=== PATIENT | female | born 1980 | race Caucasian/White ===

== ENCOUNTER 2016-08-31 12:42 | Emergency (ER) | payer SELFPAY ==
[~2016-08-31] VITALS: Ht 154.9 cm; Wt 65.0 kg
[2016-08-31 12:47] VITALS: Ht 154.9 cm; Wt 65.0 kg
[2016-08-31] MEDS ORDERED: HYDROCODONE/APAP (5/325) TAB PO ONE (13:30)
[2016-08-31] MEDS ORDERED: IBUP-1542 PO (14:02)
[2016-08-31] MEDS ORDERED: HYDR-906 PO (14:02)
[2016-08-31] MEDS ORDERED: CYCL-319 PO (14:03)
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
== END 2016-08-31 14:25 | disposition home or self-care (01) ==
LOC: FTE 12:42
DX: M54.2 Cervicalgia (principal)
CPT/HCPCS: 99283

== ENCOUNTER 2016-11-20 20:35 | Emergency (ER) | END 2016-11-21 01:05 | disposition home or self-care (01) | DX: R11.2 Nausea with vomiting, unspecified (principal); R42 Dizziness and giddiness; F17.210 Nicotine dependence, cigarettes, uncomplicated | CPT/HCPCS: 81003; 93005; 96374; J2765; J7030; Z7502; Z7610 ==

== ENCOUNTER 2017-02-17 14:08 | Emergency (ER) | payer MEDICAID, OTHER ==
[~2017-02-17] VITALS: Ht 160 cm; Wt 78.0 kg
[~2017-02-17 14:08] MED LIST: HYDR-906 PO; IBUP-1542 PO; MECL12.574 PO; ONDA4TAB8 PO
[2017-02-17 14:11] VITALS: Ht 160 cm; Wt 78.0 kg
[2017-02-17] MEDS ORDERED: SOD CHLORIDE 0.9% 1,000 ML IV STA (15:40)
[2017-02-17] MEDS ORDERED: LORAZEPAM 2 MG INJ IV ONE (16:00)
--- NOTE | 2017-02-17 16:14 | RADRPT ---
PROCEDURE: XR Chest. CLINICAL INDICATION: chest pain TECHNIQUE: Single frontal view of the chest was obtained COMPARISON: None FINDINGS: The heart and mediastinum are within normal limits. The lungs are clear. There is no pleural effusion or pneumothorax. RPTAT: AA IMPRESSION: No acute disease. .Jitendra Robert MD, Date Time Electronically viewed and signed by .Jitendra Robert MD, on 02/17/2017 16:14 .S/
[2017-02-17 16:30] LABS: BASOPHILS % 0.5 % (0.0-2.0); EOSINOPHILS % 0.5 % (0.0-7.0); HEMATOCRIT 43.5 % (37.0-47.0); HEMOGLOBIN 14.1 g/dl (12.0-16.0); LYMPHOCYTES # 1.1 10^3/ul (0.8-2.9); LYMPHOCYTES % 13.2 % (15.0-51.0); MEAN CORPUSCULAR HEMOGLOBIN 30.9 pg (29.0-33.0); MEAN CORPUSCULAR HGB CONC 32.4 g/dl (32.0-37.0); MEAN CORPUSCULAR VOLUME 95.2 fl (82.0-101.0); MEAN PLATELET VOLUME 9.4 fl (7.4-10.4); MONOCYTE # 0.5 10^3/ul (0.3-0.9); MONOCYTES % 5.7 % (0.0-11.0); NEUTROPHIL # 6.9 10^3/ul (1.6-7.5); NEUTROPHILS % 79.9 % (39.0-77.0); PLATELET COUNT 323 10^3/UL (140-415); RED BLOOD COUNT 4.57 10^6/ul (4.20-5.40); RED CELL DISTRIBUTION WIDTH 13.2 % (11.5-14.5); WHITE BLOOD COUNT 8.6 10^3/ul (4.8-10.8)
[2017-02-17 16:47] LABS: ALBUMIN 4.5 g/dl (3.3-4.9); ALBUMIN/GLOBULIN RATIO 1.28; BILIRUBIN,INDIRECT 0.9 mg/dl (0-1.1); BILIRUBIN,TOTAL 0.9 mg/dl (0.2-1.3); CALCIUM 9.2 mg/dl (8.4-10.2); CREATININE 0.73 mg/dl (0.44-1.00)
[2017-02-17 17:24] LABS: URINE BLOOD (Dip) POC Trace-intact (NEGATIVE)
[2017-02-17] MEDS ORDERED: ALBU8.5H3 INH (17:27)
--- NOTE | 2017-02-17 17:44 | ERD ---
ER Documentation Chief Complaint Date/Time DATE: 02/17/17 TIME: 17:40 Chief Complaint anxiety with islas,dizziness , blurry vision HPI 36-year-old female patient with past medical history of anemia presents to the ED complaining of chest pain, headache, dizziness that started yesterday. Patient reports that she last used cocaine 3 weeks ago. Denies any alcohol or other drug use. Denies any smoking. Denies any abdominal pain, nausea, vomiting, diarrhea, chest pain, cough, shortness of breath. Denies any recent traveling. Denies any leg swelling. Denies any loss of vision, blurred vision, diplopia. ROS All systems reviewed and are negative except as per history of present illness. Medications Home Meds Active Scripts Albuterol Sulfate* (Proair HFA*) 8.5 Gm Hfa.aer.ad, 2 PUFF INH Q4, #1 INHALER Prov:FERNANDA BARBER PA-C 02/17/17 Meclizine Hcl* (Antivert*) 12.5 Mg Tab, 12.5 MG PO Q6H Y for DIZZINESS, #20 TAB Prov:GONZALO HWANG PA-C 11/21/16 Ondansetron Hcl* (Zofran*) 4 Mg Tablet, 4 MG PO Q6H for NAUSEA AND/OR VOMITING, #30 TAB Prov:GONZALO HWANG PA-C 11/21/16 Hydrocodone/Acetaminophen (Nevis 5-325 Tablet) 1 Each Tablet, 1 TAB PO Q6H Y for PAIN, #7 TAB Prov:ED WATSON PA-C 08/31/16 Ibuprofen* (Motrin*) 600 Mg Tab, 600 MG PO Q6, #30 TAB Prov:ED WATSON PA-C 08/31/16 Reported Medications [None] No Conflict Check 12/13/09 Allergies Allergies: Coded Allergies: No Known Drug Allergy (Verified Allergy, Mild, 02/17/17) PMhx/Soc History of Surgery: Yes (d&c; HAD AN ) Anesthesia Reaction: No Hx Neurological Disorder: No Hx Respiratory Disorders: Yes (bronchitis) Hx Cardiac Disorders: No Hx Psychiatric Problems: No Hx Miscellaneous Medical Probl: Yes (PTSD) Hx Alcohol Use: Yes Hx Substance Use: Yes (cocaine, meth) Hx Tobacco Use: Yes Smoking Status: Current every day smoker Physical Exam Vitals Vital Signs Date Time Temp Pulse Resp B/P Pulse Ox O2 Delivery O2 Flow Rate FiO2 02/17/17 18:50 97.8 88 18 130/81 100 Room Air 02/17/17 14:11 98.1 72 18 131/72 99 Physical Exam Const: [id number]-iqb-[id number], well-nourished. In no acute distress. Head: Atraumatic, normocephalic Eyes: Normal Conjunctiva without injection. No purulent discharge. PERRLA. EOMI ENT: Normal external ear. Ear canal without erythema. Tympanic membrane pearly olmedo without effusion or bulging. Nasal canal clear with normal turbinates. Moist oropharynx without tonsillar exudates. Non-erythematous pharynx. Uvula midline. No drooling. No trismus. Neck: No cervical midline tenderness. Full range of motion. No meningismus. No cervical lymphadenopathy. No JVD. Resp: Clear to auscultation bilaterally. No wheezing, rhonchi, rales, or crackles. No accessory muscle use. No retractions. Cardio: Regular rate and rhythm. No murmurs, rubs or gallops. Abd: Soft, non tender, non distended. Normal bowel sounds. No palpable masses. No rebound tenderness. No guarding. Negative McBurney's Point. Negative Saldana's Sign. Skin: Normal skin turgor. No petechiae or rashes Back: No midline tenderness. No CVA tenderness. Ext: No cyanosis, or edema. Distal pulses intact bilaterally. Neur: Awake and alert. Normal gait. Normal coordination. Cranial Nerves II- VII intact. Normal finger to nose. Muscle strength 5/5. Sensation intact. Psych: Normal Mood and Affect Result Diagram: 02/17/17 1608 02/17/17 1608 Results 24 hrs Laboratory Tests Test 02/17/17 16:08 02/17/17 17:31 White Blood Count 8.610^3/ul Red Blood Count 4.5710^6/ul Hemoglobin 14.1g/dl Hematocrit 43.5% Mean Corpuscular Volume 95.2fl Mean Corpuscular Hemoglobin 30.9pg Mean Corpuscular Hemoglobin Concent 32.4g/dl Red Cell Distribution Width 13.2% Platelet Count 84828^3/UL Mean Platelet Volume 9.4fl Neutrophils % 79.9% Lymphocytes % 13.2% Monocytes % 5.7% Eosinophils % 0.5% Basophils % 0.5% Nucleated Red Blood Cells % 0.0/100WBC Neutrophils # 6.910^3/ul Lymphocytes # 1.110^3/ul Monocytes # 0.510^3/ul Eosinophils # 0.010^3/ul Basophils # 0.010^3/ul Nucleated Red Blood Cells # 0.010^3/ul Sodium Level 142mmol/L Potassium Level 4.0mmol/L Chloride Level 105mmol/L Carbon Dioxide Level 28mmol/L Anion Gap 13 Blood Urea Nitrogen 13mg/dl Creatinine 0.73mg/dl Glucose Level 85mg/dl Calcium Level 9.2mg/dl Total Bilirubin 0.9mg/dl Direct Bilirubin 0.00mg/dl Indirect Bilirubin 0.9mg/dl Aspartate Amino Transf (AST/SGOT) 23IU/L Alanine Aminotransferase (ALT/SGPT) 37IU/L Alkaline Phosphatase 87IU/L Troponin I < 0.012ng/ml Total Protein 8.0g/dl Albumin 4.5g/dl Globulin 3.50g/dl Albumin/Globulin Ratio 1.28 Lipase 116U/L Bedside Urine pH (LAB) 7.0 Bedside Urine Protein (LAB) 2+ Bedside Urine Glucose (UA) Negative Bedside Urine Ketones (LAB) Negative Bedside Urine Blood Trace-intact Bedside Urine Nitrite (LAB) Negative Bedside Urine Leukocyte Esterase (L Negative Current Medications Medications (Trade) Dose Ordered Sig/Danielle Route PRN Reason Start Time Stop Time Status Last Admin Dose Admin Sodium Chloride (NS) 1,000 ml @ 1,000 mls/hr Q1H STAT IV 02/17/17 15:40 02/17/17 16:39 DC 02/17/17 16:11 Lorazepam (Ativan) 1 mg ONCE ONCE IV 02/17/17 16:00 02/17/17 16:01 DC 02/17/17 16:37 Procedures/MDM This is a 36-year-old female patient with no significant past medical history presents to the ED complaining of chest pain, headache, dizziness. Patient is afebrile nontoxic appearing. Patient has normal vital signs. Patient was further worked up with CBC, CMP, lipase, UA, EKG, CXR. Patient's pain and symptoms have improved after treatment with 1 L normal saline, 1 mg IV Ativan. Patient reports that her headache and chest pain has resolved. CBC: No leukocytosis. No e/o of systemic infection. No e/o anemia. CMP: No e/o severe acidosis, alkalosis, renal failure, diabetic ketoacidosis, liver disease Lipase within normal limits. Urine: No leukocyte esterase, no nitrites, no hematuria. Urine : Negative EKG reviewed and interpreted by Dr. Richards Rate/Rhythm: [83 bpm, Normal Sinus Rhythm] No ectopy, no ST elevations, normal axis. QRS, ST, T-waves: [No changes consistent w/ acute ischemia] Impression: [No evidence of ischemia or arrhythmia] PROCEDURE: XR Chest. CLINICAL INDICATION: chest pain TECHNIQUE: Single frontal view of the chest was obtained COMPARISON: None FINDINGS: The heart and mediastinum are within normal limits. The lungs are clear. There is no pleural effusion or pneumothorax. RPTAT: AA IMPRESSION: No acute disease. Differentials include anxiety. Low suspicion for acute myocardial infarction, pneumothorax, pneumonia, cardiac tamponade, pulmonary embolism, AAA, aortic dissection, thoracic aortic dissection, endocarditis, pericarditis, cocaine- related ischemia, Boerhaave's syndrome, cardiac dysrhythmias,meningitis, intracranial bleed, seizure, stroke, cavernous sinus thrombosis, TIA or other emergent conditions. Discharge medications: Proair Follow up with primary care physician in 1-2 days. Instructed patient to return to the ED sooner for any worsening symptoms. Patient's questions were answered. Patient understood and agreed with discharge plan. Patient discharged stable. Departure Diagnosis: Primary Impression: Chest pain Chest pain type: unspecified Qualified Code: R07.9 - Chest pain, unspecified type Condition: Stable Patient Instructions: Costochondritis, Your Body's Response to Anxiety, Anxiety Reaction Referrals: COMM[facility]ITY CLINICS YOU HAVE RECEIVED A MEDICAL SCREENING EXAM AND THE RESULTS INDICATE THAT YOU DO NOT HAVE A CONDITION THAT REQUIRES URGENT TREATMENT IN THE EMERGENCY DEPARTMENT. FURTHER EVALUATION AND TREATMENT OF YOUR CONDITION CAN WAIT UNTIL YOU ARE SEEN IN YOUR DOCTORS OFFICE WITHIN THE NEXT 1-2 DAYS. IT IS YOUR RESPONSIBILITY TO MAKE AN APPOINTMENT FOR FOLOW-UP CARE. IF YOU HAVE A PRIMARY DOCTOR --you should call your primary doctor and schedule an appointment IF YOU DO NOT HAVE A PRIMARY DOCTOR YOU CAN CALL OUR PHYSICIAN REFERRAL HOTLINE AT IF YOU CAN NOT AFFORD TO SEE A PHYSICIAN YOU CAN CHOSE FROM THE FOLLOWING [facility] CLINICS [facility] [address] [facility] [address] [place] [facility] [address] [facility] [address] [facility] [address] [facility]. [address] [facility]. [facility] YOU HAVE RECEIVED A MEDICAL SCREENING EXAM AND THE RESULTS INDICATE THAT YOU DO NOT HAVE A CONDITION THAT REQUIRES URGENT TREATMENT IN THE EMERGENCY DEPARTMENT. FURTHER EVALUATION AND TREATMENT OF YOUR CONDITION CAN WAIT UNTIL YOU ARE SEEN IN YOUR DOCTORS OFFICE WITHIN THE NEXT 1-2 DAYS. IT IS YOUR RESPONSIBILITY TO MAKE AN APPOINTMENT FOR FOLOW-UP CARE. IF YOU HAVE A PRIMARY DOCTOR --you should call your primary doctor and schedule and appointment IF YOU DO NOT HAVE A PRIMARY DOCTOR YOU CAN CALL OUR PHYSICIAN REFERRAL HOTLINE AT . IF YOU CAN NOT AFFORD TO SEE A PHYSICIAN YOU CAN CHOSE FROM THE FOLLOWING [facility]: [facility] [address] [place] [address] [facility] [address] [place] [address] [facility] [address] [place] [address] [facility] URGENT C[facility]/SPECIALTIES Additional Instructions: Call your primary care doctor TOMORROW for an appointment during the next 1-2 days.See the doctor sooner or return here if your condition worsens before your appointment time. FERNANDA BARBER PA-C Feb 17, 2017 17:44
[2017-02-17 18:50] VITALS: BP 130/81; PULSE 88; RESP 18; TEMP 97.8
== END 2017-02-17 18:55 | disposition home or self-care (01) ==
LOC: FTE 14:08
DX: R07.9 Chest pain, unspecified (principal); F17.210 Nicotine dependence, cigarettes, uncomplicated
CPT/HCPCS: 71010; 80053; 81003; 83690; 84484; 85025; 93005; J2060; J7030; 36415; 96361; 96374

== ENCOUNTER 2017-03-24 20:12 | Emergency (ER) | payer SELFPAY ==
[~2017-03-24] VITALS: Ht 154.9 cm; Wt 68.3 kg
[~2017-03-24 20:12] MED LIST changes: +ALBU8.5H3 INH
[2017-03-24 20:20] VITALS: Ht 154.9 cm; Wt 68.3 kg
[2017-03-24] MEDS ORDERED: METOCLOPRAMIDE 10 MG INJ IV STA (23:03)
[2017-03-24] MEDS ORDERED: ONDANSETRON 4 MG INJ IV STA (23:03)
[2017-03-24] MEDS ORDERED: morphine 4 MG/ML VIAL IV STA (23:03)
[2017-03-24] MEDS ORDERED: SOD CHLORIDE 0.9% 1,000 ML IV STA (23:03)
--- NOTE | 2017-03-24 23:25 | RADRPT ---
PROCEDURE: XR Chest. CLINICAL INDICATION: Headache TECHNIQUE: PA and Lateral views of the chest were obtained. COMPARISON: None. FINDINGS: The cardiomediastinal silhouette is within normal limits. The lungs are clear. No signs of pleural f luid or pneumothorax are seen. The osseous structures and soft tissues are unremarkable. IMPRESSION: 1. No acute cardiopulmonary disease. RPTAT:AAJJ Ludy Arias Physician Date Time Electronically viewed and signed by Ludy Arias Physician on 03/24/2017 23:25 QL/
--- NOTE | 2017-03-25 00:12 | RADRPT ---
PROCEDURE: CT brain without contrast CLINICAL INDICATION: Headaches TECHNIQUE: A CT of the brain was performed utilizing axial sections from the skull base through th e vertex without contrast. Sagittal and coronal images were also reformatted. One or more of the fol lowing dose reduction techniques were used: Automated exposure control, adjustment of the mA and/or kV according to patient size, use of iterative reconstruction technique. The exam CTDIvol = 45.01 mGy and DLP = 720.23 mGy-cm. COMPARISON: None available FINDINGS: No acute intracranial hemorrhage is identified. There is no mass effect or midline shift. No extra -axial fluid collection is seen. The ventricles and sulci are within normal limits for size and con figuration. The density of the brain is within normal limits. Mackey-white differentiation is preser praveen. The osseous structures are unremarkable. Moderate chronic appearing mucosal thickening of the sphen oid, ethmoid and left greater than right maxillary sinuses is present with almost total opacificatio n of the right frontal sinus. The mastoid air cells appear clear RPTAT:HJJR IMPRESSION: 1. Unremarkable noncontrast CT of the brain. 2. Moderate chronic appearing pansinusitis without air-fluid levels. Physician Delfin Date Time Electronically viewed and signed by Physician Delfin on 03/25/2017 00:11 JR/
--- NOTE | 2017-03-25 02:02 | ERD ---
ER Documentation Chief Complaint Chief Complaint BIB SELF, CC: HEADACHE X 4 DAYS, HPI 36-year-old female brought him with complaints of headache for 4 days. Denies any fevers chills nausea vomiting. Headache is mild to moderate intensity. No other current complaints. Nonfocal neurologically. Patient that she feels pain behind her nose and behind her eyes. No other current issues ROS All systems reviewed and are negative except as per history of present illness. Medications Home Meds Active Scripts Albuterol Sulfate* (Proair HFA*) 8.5 Gm Hfa.aer.ad, 2 PUFF INH Q4, #1 INHALER Prov:FERNANDA BARBER PA-C 02/17/17 Meclizine Hcl* (Antivert*) 12.5 Mg Tab, 12.5 MG PO Q6H Y for DIZZINESS, #20 TAB Prov:GONZALO HWANG PA-C 11/21/16 Ondansetron Hcl* (Zofran*) 4 Mg Tablet, 4 MG PO Q6H for NAUSEA AND/OR VOMITING, #30 TAB Prov:GONZALO HWANG PA-C 11/21/16 Hydrocodone/Acetaminophen ([place] 5-325 Tablet) 1 Each Tablet, 1 TAB PO Q6H Y for PAIN, #7 TAB Prov:ED WATSON PA-C 08/31/16 Ibuprofen* (Motrin*) 600 Mg Tab, 600 MG PO Q6, #30 TAB Prov:ED WATSON PA-C 08/31/16 Reported Medications [None] No Conflict Check 12/13/09 Allergies Allergies: Coded Allergies: No Known Drug Allergy (Verified Allergy, Mild, 02/17/17) PMhx/Soc History of Surgery: Yes (d&c; HAD AN ) Anesthesia Reaction: No Hx Neurological Disorder: No Hx Respiratory Disorders: Yes (bronchitis) Hx Cardiac Disorders: No Hx Psychiatric Problems: No Hx Miscellaneous Medical Probl: Yes (PTSD) Hx Alcohol Use: Yes Hx Substance Use: Yes (cocaine, meth) Hx Tobacco Use: Yes Smoking Status: Current some day smoker Physical Exam Vitals Vital Signs Date Time Temp Pulse Resp B/P Pulse Ox O2 Delivery O2 Flow Rate FiO2 03/24/17 20:20 98.5 95 18 134/74 100 Physical Exam Const: [] Head: Atraumatic Eyes: Normal Conjunctiva ENT: Normal External Ears, Nose and Mouth. Neck: Full range of motion..~ No meningismus. Resp: Clear to auscultation bilaterally Cardio: Regular rate and rhythm, no murmurs Abd: Soft, non tender, non distended. Normal bowel sounds Skin: No petechiae or rashes Back: No midline or flank tenderness Ext: No cyanosis, or edema Neur: Awake and alert Psych: Normal Mood and Affect Result Diagram: 03/24/17229903/24/172299 Results 24 hrs Laboratory Tests Test 03/24/17 23:00 White Blood Count 11.310^3/ul Red Blood Count 4.5510^6/ul Hemoglobin 13.6g/dl Hematocrit 42.8% Mean Corpuscular Volume 94.1fl Mean Corpuscular Hemoglobin 29.9pg Mean Corpuscular Hemoglobin Concent 31.8g/dl Red Cell Distribution Width 13.3% Platelet Count 78012^3/UL Mean Platelet Volume 9.0fl Neutrophils % 70.6% Lymphocytes % 20.4% Monocytes % 6.1% Eosinophils % 2.1% Basophils % 0.6% Nucleated Red Blood Cells % 0.0/100WBC Neutrophils # 8.010^3/ul Lymphocytes # 2.310^3/ul Monocytes # 0.710^3/ul Eosinophils # 0.210^3/ul Basophils # 0.110^3/ul Nucleated Red Blood Cells # 0.010^3/ul Prothrombin Time 12.1Sec Prothrombin Time Ratio 0.9 INR International Normalized Ratio 0.90 Activated Partial Thromboplast Time 33.0Sec Sodium Level 142mmol/L Potassium Level 4.6mmol/L Chloride Level 104mmol/L Carbon Dioxide Level 29mmol/L Anion Gap 14 Blood Urea Nitrogen 12mg/dl Creatinine 0.75mg/dl Glucose Level 89mg/dl Calcium Level 9.6mg/dl Troponin I < 0.012ng/ml Current Medications Medications (Trade) Dose Ordered Sig/Danielle Route PRN Reason Start Time Stop Time Status Last Admin Dose Admin Sodium Chloride (NS) 1,000 ml @ 1,000 mls/hr Q1H STAT IV 03/24/17 23:03 03/25/17 00:02 DC 03/24/17 23:25 Metoclopramide HCl (Reglan) 10 mg ONCE STAT IV 03/24/17 23:03 03/24/17 23:04 DC 03/24/17 23:25 Ondansetron HCl (Zofran Inj) 4 mg ONCE STAT IV 03/24/17 23:03 03/24/17 23:04 DC 03/24/17 23:25 Morphine Sulfate (morphine) 4 mg ONCE STAT IV 03/24/17 23:03 03/24/17 23:04 DC 03/24/17 23:25 Procedures/MDM Patient's neurologic symptoms have stabilized while they have been evaluated in the department and are appropriate for outpatient work up. No e/o meningitis, intracranial bleed, seizure, stroke. Evidence of sinusitis on CT. Discharge home with Augmentin Flonase and [place] for pain control. Told return for worsening symptoms. EKG: Rate/Rhythm: [Normal Sinus Rhythm] QRS, ST, T-waves: [No changes consistent w/ acute ischemia] Impression: [No evidence of ischemia or arrhythmia] Chest X-ray 1V Interpreted by me: Soft Tissue: No acute abnormalities Bones: No acute abnormalities Mediastinum/Cardiac Silhouette/Lungs: [No acute abnormalities] Departure Diagnosis: Primary Impression: Headache Headache type: unspecified Headache chronicity pattern: acute headache Intractability: not intractable Qualified Code: R51 - Acute nonintractable headache, unspecified headache type Condition: Stable CAMACHO MONZON Mar 25, 2017 02:01
[2017-03-25] MEDS ORDERED: HYDR-902 PO (02:03)
[2017-03-25] MEDS ORDERED: AMOX1TAB10 PO (02:03)
[2017-03-25] MEDS ORDERED: FLUT9.9S NASAL (02:03)
[2017-03-25 02:33] VITALS: BP 122/70; PULSE 82; RESP 18; TEMP 98.5
== END 2017-03-25 02:33 | disposition home or self-care (01) ==
LOC: E/R 20:12
DX: R51 Headache (principal); R40.2252 Coma scale, best verbal response, oriented, at arrival to emergency department; F17.210 Nicotine dependence, cigarettes, uncomplicated; R40.2142 Coma scale, eyes open, spontaneous, at arrival to emergency department; R40.2362 Coma scale, best motor response, obeys commands, at arrival to emergency department; R07.9 Chest pain, unspecified
CPT/HCPCS: 36415; 70450; 71010; 80048; 84484; 85025; 85610; 85730; 93005; 96374; 96375; 99285; J2270; J2405; J2765; J7030